=== PATIENT | female | born 1990 | race Caucasian/White ===

== ENCOUNTER 2016-09-27 00:09 | Emergency (ER) | payer OTHER ==
[~2016-09-27 00:09] MED LIST: AFRIN3 ML NS; AMOXICILLIN500 M1 PO; BACTRIM DS TABL1 TA2 PO; CLONAZEPAM0.5 MG PO; FLEXERIL10 M1 PO; GABAPENTIN300 M2 PO; IBUPROFEN800 MG PO; MEDROL DOSEPAK4 MG PO; NAPROSYN500 MG PO; NASAL DECONGEST30 MG PO; TYLENOL #3 PO
[2016-09-27] MEDS ORDERED: FOLIC ACID (00:19)
[2016-09-27] MEDS ORDERED: PRENATAL VITAM1 EAC1 (00:19)
[2016-09-27] MEDS ORDERED: MAGNESIUM (00:19)
[2016-09-27] MEDS ORDERED: IRON (00:19)
[2016-09-27] MEDS ORDERED: STOOL SOFTENER (00:19)
[2016-09-27 00:49] LABS: URINE SOURCE CLEAN CATCH
[2016-09-27 00:51] LABS: URINE APPEARANCE TURBID; URINE BLOOD NEG (NEG); URINE COLOR YELLOW; URINE GLUCOSE NEG (NORM); URINE KETONE TRACE (NEG); URINE LEUKOCYTE ESTERASE 1+ (NEG); URINE NITRATE NEG (NEG); URINE PROTEIN TRACE (NEG); URINE SPECIFIC GRAVITY 1.025 (1.003-1.035)
[2016-09-27 00:52] LABS: MICRO INDICATED? YES; URINE BILIRUBIN NEG (NEG)
[2016-09-27 00:56] LABS: CULTURE INDICATED? YES; URINE BACTERIA 2+ (NEG); URINE MUCUS PRESENT; URINE RBC NEG /[HPF] (0-2); URINE SQUAMOUS EPITHELIAL CELL OCCAS /[HPF]; URINE TRANSITIONAL EPI CELLS FEW /[HPF]
== END 2016-09-27 01:20 | disposition hospice, home (50) ==
LOC: SED 00:09
PROVIDERS: Emergency Medicine
DX: O99.89 Other specified diseases and conditions complicating pregnancy, childbirth and the puerperium (principal); R10.2 Pelvic and perineal pain; Z3A.32 32 weeks gestation of pregnancy; O99.333 Smoking (tobacco) complicating pregnancy, third trimester; F17.200 Nicotine dependence, unspecified, uncomplicated
CPT/HCPCS: 81003; 87086; 99285